=== PATIENT | male | born 1990 | race Caucasian/White ===

== ENCOUNTER 2022-09-29 19:44 | Inpatient (IN) | payer MEDICAID ==
[~2022-09-29] VITALS: Ht 172.7 cm; Wt 75.0 kg
[2022-09-29] MEDS ORDERED: ZOLPIDEM TARTRATE 10 MG TABLET PO PRN (21:15)
[2022-09-29] MEDS ORDERED: INFLUENZA VIRUS VACCINE QVS 2022-23 (6MO+)/PF 60 MCG/0.5 ML SYRINGE IM. ONE (22:00)
[2022-09-29] MEDS: LORazepam 2 MG TABLET PO PRN (22:06)
[2022-09-29] MEDS: HALOPERIDOL 5 MG TABLET PO PRN (22:06)
[2022-09-29 22:37] VITALS: BP 125/80
[2022-09-30 09:46] VITALS: BP 132/80
[2022-09-30] MEDS: LORazepam 2 MG TABLET PO PRN (12:47)
[2022-09-30] MEDS: HALOPERIDOL 5 MG TABLET PO PRN (12:47)
[2022-09-30] MEDS ORDERED: ONDANSETRON HCL 4 MG TABLET PO PRN (14:45)
[2022-09-30] MEDS ORDERED: LOPERAMIDE HCL 2 MG CAPSULE PO PRN (14:45)
[2022-09-30] MEDS ORDERED: DOCUSATE SODIUM 100 MG CAPSULE PO PRN (14:45)
[2022-09-30] MEDS ORDERED: CloNIDine HCL 0.1 MG TABLET PO PRN (14:45)
[2022-09-30] MEDS ORDERED: ALBUTEROL SULFATE HFA 90 MCG/PUFF 8 GM INHALER IH PRN (14:45)
[2022-09-30] MEDS ORDERED: IBUPROFEN 600 MG TABLET PO PRN (14:45)
[2022-09-30] MEDS ORDERED: MAG HYDROX/AL HYDROX/SIMETH ES 30 ML SUSPENSION UDCUP PO PRN (14:45)
[2022-09-30] MEDS ORDERED: BENZOCAINE/MENTHOL LOZENGE PO PRN (14:45)
[2022-09-30] MEDS ORDERED: PETROLATUM,WHITE 28 GM JELLY TP PRN (14:45)
[2022-09-30] MEDS ORDERED: MAGNESIUM HYDROXIDE SUSPENSION 30 ML UDCUP PO PRN (14:45)
[2022-09-30] MEDS ORDERED: OMEPRAZOLE 20 MG CAPSULE PO PRN (14:45)
[2022-09-30] MEDS ORDERED: BACITRACIN 28 GM OINTMENT TP PRN (14:45)
[2022-09-30] MEDS ORDERED: ACETAMINOPHEN 325 MG TABLET PO PRN (14:45)
[2022-09-30] MEDS: LITHIUM CARBONATE 300 MG CAPSULE PO SCH (16:34)
[2022-09-30] MEDS: DIVALPROEX SODIUM 500 MG DR TABLET PO SCH (16:34)
[2022-09-30 20:35] VITALS: BP 119/80
[2022-10-01 08:26] VITALS: BP 122/60
[2022-10-01] MEDS: ARIPiprazole 15 MG TABLET PO SCH (09:18)
[2022-10-01] MEDS: LITHIUM CARBONATE 300 MG CAPSULE PO SCH ×2 (09:18→16:26)
[2022-10-01] MEDS: DIVALPROEX SODIUM 500 MG DR TABLET PO SCH ×2 (09:19→16:26)
[2022-10-01] MEDS: NICOTINE 21 MG/24 HOUR PATCH TD SCH (10:43)
[2022-10-01 20:45] VITALS: BP 128/75
[2022-10-02 08:35] VITALS: BP 123/78
[2022-10-02] MEDS ORDERED: ARIP15TA27 PO (09:06)
[2022-10-02] MEDS ORDERED: LITH300C3 PO (09:06)
[2022-10-02] MEDS ORDERED: DIVA-112 PO (09:06)
[2022-10-02] MEDS: LITHIUM CARBONATE 300 MG CAPSULE PO SCH (09:15)
[2022-10-02] MEDS: DIVALPROEX SODIUM 500 MG DR TABLET PO SCH (09:15)
[2022-10-02] MEDS: ARIPiprazole 15 MG TABLET PO SCH (09:15)
[2022-10-02] MEDS: NICOTINE 21 MG/24 HOUR PATCH TD SCH (09:15)
== END 2022-10-02 13:05 | disposition home or self-care (01) | DRG 750 ==
LOC: B3A 21:45
PROVIDERS: ADMIT Psychiatry & Neurology Psychiatry; ATTEND Psychiatry & Neurology Psychiatry
DX: F25.9 Schizoaffective disorder, unspecified (principal); R45.851 Suicidal ideations; G47.00 Insomnia, unspecified; K59.00 Constipation, unspecified; F41.9 Anxiety disorder, unspecified; F17.200 Nicotine dependence, unspecified, uncomplicated
CPT/HCPCS: Z7610

== ENCOUNTER 2023-03-03 04:05 | Inpatient (IN) | payer MEDICAID ==
[~2023-03-03] VITALS: Ht 175.3 cm; Wt 64.2 kg
[~2023-03-03 04:05] MED LIST: ARIP15TA27 PO; DIVA-112 PO; LITH300C3 PO
[2023-03-03] MEDS ORDERED: ZOLPIDEM TARTRATE 10 MG TABLET PO PRN (05:45)
[2023-03-03] MEDS ORDERED: LORazepam 2 MG TABLET PO PRN (05:45)
[2023-03-03 06:44] VITALS: BP 129/82
[2023-03-03] MEDS ORDERED: SERT-162 PO (08:26)
[2023-03-03] MEDS ORDERED: OLAN10TA74 PO (08:26)
[2023-03-03 08:38] VITALS: BP 117/76
[2023-03-03 09:56] LABS: GLUCOMETER DEV NAME(LOC) POC.BV
[2023-03-03] MEDS ORDERED: HALOPERIDOL 5 MG TABLET PO PRN (12:30)
[2023-03-03] MEDS: SERTRALINE HCL 100 MG TABLET PO SCH (13:01)
[2023-03-03] MEDS: OLANZapine 10 MG TABLET PO SCH ×2 (13:01→20:43)
[2023-03-03] MEDS ORDERED: MAGNESIUM HYDROXIDE SUSPENSION 30 ML UDCUP PO PRN (17:00)
[2023-03-03] MEDS ORDERED: LOPERAMIDE HCL 2 MG CAPSULE PO PRN (17:00)
[2023-03-03] MEDS ORDERED: ONDANSETRON HCL 4 MG TABLET PO PRN (17:00)
[2023-03-03] MEDS ORDERED: NICOTINE 14 MG/24 HOUR PATCH TD PRN (17:00)
[2023-03-03] MEDS ORDERED: ALBUTEROL SULFATE HFA 90 MCG/PUFF 8 GM INHALER IH PRN (17:00)
[2023-03-03] MEDS ORDERED: DOCUSATE SODIUM 100 MG CAPSULE PO PRN (17:00)
[2023-03-03] MEDS ORDERED: CloNIDine HCL 0.1 MG TABLET PO PRN (17:00)
[2023-03-03] MEDS ORDERED: ACETAMINOPHEN 325 MG TABLET PO PRN (17:00)
[2023-03-03] MEDS ORDERED: IBUPROFEN 400 MG TABLET PO PRN (17:00)
[2023-03-03] MEDS ORDERED: PETROLATUM,WHITE 28 GM JELLY TP PRN (17:00)
[2023-03-03] MEDS ORDERED: GuaiFENesin/D-METHORPHAN [SUGAR-FREE] 200-20MG/10 ML SYRUP UDCUP PO PRN (17:00)
[2023-03-03] MEDS ORDERED: MAG HYDROX/AL HYDROX/SIMETH ES 30 ML SUSPENSION UDCUP PO PRN (17:00)
[2023-03-03 20:16] VITALS: BP 127/75
[2023-03-04 08:22] VITALS: BP 128/84
[2023-03-04] MEDS: OLANZapine 10 MG TABLET PO SCH ×2 (09:02→20:54)
[2023-03-04] MEDS: SERTRALINE HCL 100 MG TABLET PO SCH (09:02)
[2023-03-04 20:15] VITALS: BP 115/74
[2023-03-05 08:51] VITALS: BP 125/76
[2023-03-05] MEDS: SERTRALINE HCL 100 MG TABLET PO SCH (08:58)
[2023-03-05] MEDS: OLANZapine 10 MG TABLET PO SCH ×2 (08:58→20:17)
[2023-03-05 22:28] VITALS: BP 122/71
[2023-03-06 08:23] VITALS: BP 128/80
[2023-03-06] MEDS: SERTRALINE HCL 100 MG TABLET PO SCH (09:03)
[2023-03-06] MEDS: OLANZapine 10 MG TABLET PO SCH ×2 (09:03→20:30)
[2023-03-06 20:36] VITALS: BP 114/74
[2023-03-07 08:17] VITALS: BP 128/72
[2023-03-07] MEDS: OLANZapine 10 MG TABLET PO SCH ×2 (09:57→20:15)
[2023-03-07] MEDS: SERTRALINE HCL 100 MG TABLET PO SCH (09:57)
[2023-03-07 21:17] VITALS: BP 136/77
[2023-03-08 09:05] VITALS: BP 120/67
[2023-03-08] MEDS: SERTRALINE HCL 100 MG TABLET PO SCH (09:09)
[2023-03-08] MEDS: OLANZapine 10 MG TABLET PO SCH ×2 (09:09→20:31)
[2023-03-08 20:35] VITALS: BP 129/78
[2023-03-09 08:56] VITALS: BP 128/81
[2023-03-09] MEDS: SERTRALINE HCL 100 MG TABLET PO SCH (09:02)
[2023-03-09] MEDS: OLANZapine 10 MG TABLET PO SCH ×2 (09:02→20:44)
[2023-03-09 20:42] VITALS: BP 120/71
[2023-03-10] MEDS: SERTRALINE HCL 100 MG TABLET PO SCH (09:02)
[2023-03-10] MEDS: OLANZapine 10 MG TABLET PO SCH ×2 (09:02→20:32)
[2023-03-10 09:04] VITALS: BP 123/78
[2023-03-11 08:22] VITALS: BP 122/67
[2023-03-11] MEDS: SERTRALINE HCL 100 MG TABLET PO SCH (08:24)
[2023-03-11] MEDS: OLANZapine 10 MG TABLET PO SCH ×2 (08:24→20:21)
[2023-03-11 22:19] VITALS: BP 119/82
[2023-03-12] MEDS ORDERED: OLAN10 PO (08:19)
[2023-03-12] MEDS ORDERED: SERT-440 PO (08:19)
[2023-03-12] MEDS: SERTRALINE HCL 100 MG TABLET PO SCH (09:08)
[2023-03-12] MEDS: OLANZapine 10 MG TABLET PO SCH (09:08)
[2023-03-12 09:23] VITALS: BP 126/78
== END 2023-03-12 09:40 | disposition home or self-care (01) | DRG 750 ==
LOC: B2S 05:43
PROVIDERS: ADMIT Psychiatry & Neurology Psychiatry; ATTEND Psychiatry & Neurology Psychiatry
DX: F20.0 Paranoid schizophrenia (principal); R45.851 Suicidal ideations; G47.00 Insomnia, unspecified; Z20.822 Contact with and (suspected) exposure to COVID-19; F10.10 Alcohol abuse, uncomplicated; F32.A Depression, unspecified; F41.9 Anxiety disorder, unspecified; Z79.899 Other long term (current) drug therapy; Z59.00 Homelessness unspecified
CPT/HCPCS: Z7610